=== PATIENT | female | born 2000 | race Caucasian/White ===

== ENCOUNTER 2018-03-13 00:54 | Emergency (ER) | payer OTHER ==
[2018-03-13 01:14] VITALS: TEMP 97.1
[2018-03-13] MEDS ORDERED: SODIUM CHLORIDE 0.9% 2,000 ML IV ONE (01:32)
--- NOTE | 2018-03-13 01:38 | ED ---
General Adult HPI - General Chief complaint: Altered Mental Status Stated complaint: ETOH Time Seen by Provider: 03/13/18 01:16 Source: EMS Mode of arrival: EMS Limitations: altered mental status - History of Present Illness Initial comments: Merced is a 17-year-old female who presents the ED today via EMS for evaluation of altered mental status and tachycardia. Per the patient she was drinking alcohol, she states she was drinking vodka and Sprite, the people drinking with her were concerned that she became too intoxicated so they called an ambulance. Patient reports that she's been told multiple times that she has a fast heart rate. She reports that she has seen a primary care doctor at her home in [place] however is never seen a credit control administrator. She reports that her resting heart rate is usually around 120. In route to the hospital day her heart rate was noted to be 150-160. Patient reports this is very fast for her. Patient reports that she's had alcohol and caffeine free Sprite today. She denies any other drug use and denies smoking, denies any marijuana or synthetic marijuana, denies any stimulants. Patient denies any recent fevers, chills, nausea or vomiting. She denies any chest pain, shortness of breath or lightheadedness. Patient is accompanied to the ER by a friend. The friend states that he works with the patient's boyfriend. He reports that they were drinking at the bar. He noticed the patient get up to use the restroom that she was very unsteady on her feet. He got up to assist her to the restroom and this most of upset her boyfriend who subsequently walked out of the bar. At that time the friend became concerned because he did so he called EMS for transfer to Hospital. He states that he has been with her this evening he has not witnessed her smoking or using any drugs. He does state that he witnessed her drinking multiple shots of vodka. - Related Data Allergies Allergy/AdvReac Type Severity Reaction Status Date / Time No Known Allergies Allergy Verified 03/13/18 01:04 Review of Systems ROS Statement: Those systems with pertinent positive or pertinent negative responses have been documented in the HPI. ROS Other: All systems not noted in ROS Statement are negative. Past Medical History Past Medical History: No Reported History History of Any Multi-Drug Resistant Organisms: None Reported Past Surgical History: No Surgical Hx Reported Past Psychological History: No Psychological Hx Reported Smoking Status: Never smoker Past Alcohol Use History: None Reported Past Drug Use History: None Reported General Exam Limitations: altered mental status Course Vital Signs 03/13/18 03/13/18 03/13/18 01:00 01:10 02:11 Temperature 97.1 F L Pulse Rate 165 H 168 H 141 H Respiratory 18 18 16 Rate Blood Pressure 150/83 O2 Sat by Pulse 98 96 Oximetry 03/13/18 03/13/18 03/13/18 02:27 02:52 04:14 Temperature Pulse Rate 112 H 101 H 97 Respiratory 16 16 Rate Blood Pressure 97/55 O2 Sat by Pulse 100 Oximetry 03/13/18 04:39 Temperature Pulse Rate 100 Respiratory 16 Rate Blood Pressure 100/72 O2 Sat by Pulse 99 Oximetry EKG Findings - EKG Comments: EKG Findings:: EKG obtained at 1 AM, rate is 152, rhythm is sinus tachycardia, misses a narrow complex regular tachycardia. There is a P-wave before each QRS. Normal axis, normal intervals, WA 124, QRS is 82, QTc 410. No evidence of acute ischemia or infarction Medical Decision Making - Medical Decision Making Patient was seen and evaluated, history was obtained from the patient NO Previous medical records available as the [place] A broad workup including labs, toxicology labs and react labs were ordered IV fluids infusing After patient calmed down her heart rate improved to 115 Labs and imaging were unremarkable Heart rate continued to improve, was noted to be in the 80s to 90s comfortably Labs unremarkable, d-dimer negative, TSH within normal limits Patient has a friend at bedside who states he is comfortable taking the patient home. He is aware that the patient is currently intoxicated. Patient states she feels comfortable being discharged home. Patient will be referred to cardiology for outpatient evaluation of her persistent tachycardia - Lab Data Result diagrams: 03/13/18 01:51 Lab Results 03/13/18 03/13/18 03/13/18 Range/Units 01:51 01:51 01:51 WBC 7.1 (4.0-11.0) k/uL RBC 4.52 (3.80-5.40) m/uL Hgb 14.6 (11.4-16.0) gm/dL Hct 42.1 (34.0-46.0) % MCV 93.2 (80.0-100.0) fL MCH 32.2 (25.0-35.0) pg MCHC 34.6 (31.0-37.0) g/dL RDW 13.1 (11.5-15.5) % Plt Count 311 (150-450) k/uL Neutrophils % 56 % Lymphocytes % 31 % Monocytes % 7 % Eosinophils % 2 % Basophils % 1 % Neutrophils # 4.0 (1.3-7.7) k/uL Lymphocytes # 2.2 (1.0-4.8) k/uL Monocytes # 0.5 (0-1.0) k/uL Eosinophils # 0.2 (0-0.7) k/uL Basophils # 0.1 (0-0.2) k/uL PT (9.0-12.0) sec INR (<1.2) APTT (22.0-30.0) sec D-Dimer (<0.60) mg/L FEU Magnesium 1.9 (1.6-2.3) mg/dL Total Creatine Kinase 61 (30-135) U/L CK-MB (CK-2) 0.4 (0.0-2.4) ng/mL CK-MB (CK-2) Rel Index 0.7 Troponin I <0.012 (0.000-0.034) ng/mL TSH 0.488 (0.465-4.680) mIU/L Urine Color Urine Appearance (Clear) Urine pH (5.0-8.0) Ur Specific J[place] (1.001-1.035) Urine Protein (Negative) Urine Glucose (UA) (Negative) Urine Ketones (Negative) Urine Blood (Negative) Urine Nitrite (Negative) Urine Bilirubin (Negative) Urine Urobilinogen (<2.0) mg/dL Ur Leukocyte Esterase (Negative) Urine HCG, Qual (Not Detectd) Salicylates <1.0 mg/dL Urine Opiates Screen (NotDetected) Ur Oxycodone Screen (NotDetected) Urine Methadone Screen (NotDetected) Ur Propoxyphene Screen (NotDetected) Acetaminophen <10.0 ug/mL Ur Barbiturates Screen (NotDetected) U Tricyclic Antidepress (NotDetected) Ur Phencyclidine Scrn (NotDetected) Ur Amphetamines Screen (NotDetected) U Methamphetamines Scrn (NotDetected) U Benzodiazepines Scrn (NotDetected) Urine Cocaine Screen (NotDetected) U Marijuana (THC) Screen (NotDetected) Serum Alcohol 287 H* mg/dL 03/13/18 03/13/18 03/13/18 Range/Units 02:00 02:08 02:08 WBC (4.0-11.0) k/uL RBC (3.80-5.40) m/uL Hgb (11.4-16.0) gm/dL Hct (34.0-46.0) % MCV (80.0-100.0) fL MCH (25.0-35.0) pg MCHC (31.0-37.0) g/dL RDW (11.5-15.5) % Plt Count (150-450) k/uL Neutrophils % % Lymphocytes % % Monocytes % % Eosinophils % % Basophils % % Neutrophils # (1.3-7.7) k/uL Lymphocytes # (1.0-4.8) k/uL Monocytes # (0-1.0) k/uL Eosinophils # (0-0.7) k/uL Basophils # (0-0.2) k/uL PT 10.3 (9.0-12.0) sec INR 1.1 (<1.2) APTT 24.3 (22.0-30.0) sec D-Dimer 0.36 (<0.60) mg/L FEU Magnesium (1.6-2.3) mg/dL Total Creatine Kinase (30-135) U/L CK-MB (CK-2) (0.0-2.4) ng/mL CK-MB (CK-2) Rel Index Troponin I (0.000-0.034) ng/mL TSH (0.465-4.680) mIU/L Urine Color Colorless Urine Appearance Clear (Clear) Urine pH 6.0 (5.0-8.0) Ur Specific J[place] 1.002 (1.001-1.035) Urine Protein Negative (Negative) Urine Glucose (UA) Negative (Negative) Urine Ketones Negative (Negative) Urine Blood Negative (Negative) Urine Nitrite Negative (Negative) Urine Bilirubin Negative (Negative) Urine Urobilinogen <2.0 (<2.0) mg/dL Ur Leukocyte Esterase Negative (Negative) Urine HCG, Qual (Not Detectd) Salicylates mg/dL Urine Opiates Screen Not Detected (NotDetected) Ur Oxycodone Screen Not Detected (NotDetected) Urine Methadone Screen Not Detected (NotDetected) Ur Propoxyphene Screen Not Detected (NotDetected) Acetaminophen ug/mL Ur Barbiturates Screen Not Detected (NotDetected) U Tricyclic Antidepress Not Detected (NotDetected) Ur Phencyclidine Scrn Not Detected (NotDetected) Ur Amphetamines Screen Not Detected (NotDetected) U Methamphetamines Scrn Not Detected (NotDetected) U Benzodiazepines Scrn Not Detected (NotDetected) Urine Cocaine Screen Not Detected (NotDetected) U Marijuana (THC) Screen Not Detected (NotDetected) Serum Alcohol mg/dL 03/13/18 Range/Units 02:08 WBC (4.0-11.0) k/uL RBC (3.80-5.40) m/uL Hgb (11.4-16.0) gm/dL Hct (34.0-46.0) % MCV (80.0-100.0) fL MCH (25.0-35.0) pg MCHC (31.0-37.0) g/dL RDW (11.5-15.5) % Plt Count (150-450) k/uL Neutrophils % % Lymphocytes % % Monocytes % % Eosinophils % % Basophils % % Neutrophils # (1.3-7.7) k/uL Lymphocytes # (1.0-4.8) k/uL Monocytes # (0-1.0) k/uL Eosinophils # (0-0.7) k/uL Basophils # (0-0.2) k/uL PT (9.0-12.0) sec INR (<1.2) APTT (22.0-30.0) sec D-Dimer (<0.60) mg/L FEU Magnesium (1.6-2.3) mg/dL Total Creatine Kinase (30-135) U/L CK-MB (CK-2) (0.0-2.4) ng/mL CK-MB (CK-2) Rel Index Troponin I (0.000-0.034) ng/mL TSH (0.465-4.680) mIU/L Urine Color Urine Appearance (Clear) Urine pH (5.0-8.0) Ur Specific [place] (1.001-1.035) Urine Protein (Negative) Urine Glucose (UA) (Negative) Urine Ketones (Negative) Urine Blood (Negative) Urine Nitrite (Negative) Urine Bilirubin (Negative) Urine Urobilinogen (<2.0) mg/dL Ur Leukocyte Esterase (Negative) Urine HCG, Qual Not Detected (Not Detectd) Salicylates mg/dL Urine Opiates Screen (NotDetected) Ur Oxycodone Screen (NotDetected) Urine Methadone Screen (NotDetected) Ur Propoxyphene Screen (NotDetected) Acetaminophen ug/mL Ur Barbiturates Screen (NotDetected) U Tricyclic Antidepress (NotDetected) Ur Phencyclidine Scrn (NotDetected) Ur Amphetamines Screen (NotDetected) U Methamphetamines Scrn (NotDetected) U Benzodiazepines Scrn (NotDetected) Urine Cocaine Screen (NotDetected) U Marijuana (THC) Screen (NotDetected) Serum Alcohol mg/dL Disposition Clinical Impression: Alcoholic intoxication, Tachycardia Disposition: HOME SELF-CARE Condition: Stable Instructions: Tachycardia (ED) Is patient prescribed a controlled substance at d/c from ED?: No Referrals: None,Stated [Primary Care Provider] - 1-2 days [facility] [Provider Group] - 1-2 days Time of Disposition: 04:22
[2018-03-13 02:02] LABS: Basophils # (A) 0.1 k/uL (0-0.2); Basophils % (A) 1 %; Eosinophils # (A) 0.2 k/uL (0-0.7); Eosinophils % (A) 2 %; HCT 42.1 % (34.0-46.0); HGB 14.6 gm/dL (11.4-16.0); Lymphocytes # (A) 2.2 k/uL (1.0-4.8); Lymphocytes % (A) 31 %; MCH 32.2 pg (25.0-35.0); MCHC 34.6 g/dL (31.0-37.0); MCV 93.2 fL (80.0-100.0); Mean Platelet Volume 7.5; Monocytes # (A) 0.5 k/uL (0-1.0); Monocytes % (A) 7 %; Neutrophils % (A) 56 %; Platelet Count 311 k/uL (150-450); RBC 4.52 m/uL (3.80-5.40); RDW 13.1 % (11.5-15.5); WBC 7.1 k/uL (4.0-11.0)
[2018-03-13 02:11] LABS: Acetaminophen <10.0 ug/mL; Magnesium 1.9 mg/dL (1.6-2.3); Salicylate <1.0 mg/dL
[2018-03-13 02:12] VITALS: RESP 16
[2018-03-13 02:16] LABS: Appearance,Urine Clear (Clear); Bilirubin,Urine Negative (Negative); Blood,Urine Negative (Negative); Color,Urine Colorless; Glucose,Urine (UA) Negative (Negative); Ketones,Urine Negative (Negative); Leukocyte Esterase,Urine Negative (Negative); Nitrite,Urine Negative (Negative); Protein,Urine Negative (Negative); Specific Gravity,Urine 1.002 (1.001-1.035); Urobilinogen,Urine <2.0 mg/dL (<2.0)
[2018-03-13 02:24] LABS: D-Dimer 0.36 mg/L FEU (<0.60); INR 1.1 (<1.2); Partial Thromboplastin Time 24.3 sec (22.0-30.0); Prothrombin Time 10.3 sec (9.0-12.0)
--- NOTE | 2018-03-13 02:25 | XR ---
EXAMINATION TYPE: XR chest 2V DATE OF EXAM: 03/13/2018 COMPARISON: NONE HISTORY: Chest pain TECHNIQUE: Frontal and lateral views of the chest are obtained. FINDINGS: Heart and mediastinum are normal. Lungs are clear. Diaphragm is normal. There are chest le ads. There is 5% wedging of L1 vertebra. IMPRESSION: No cardiopulmonary disease.
[2018-03-13 02:26] LABS: Amphetamine Screen,Urine Not Detected (NotDetected); Barbiturate Screen,Urine Not Detected (NotDetected); Benzodiazepines Screen,Urine Not Detected (NotDetected); Cocaine Screen,Urine Not Detected (NotDetected); Methadone Screen, Urine Not Detected (NotDetected); Opiate Screen,Urine Not Detected (NotDetected); Oxycodone Screen, Urine Not Detected (NotDetected); Phencyclidine Screen,Urine Not Detected (NotDetected); Tricyclic Antidepressant,Urine Not Detected (NotDetected); Urn Cannabinoid Scrn Not Detected (NotDetected)
[2018-03-13 02:28] LABS: Creatine Kinase 61 U/L (30-135)
[2018-03-13 02:34] LABS: Alcohol 287 mg/dL
[2018-03-13 02:41] LABS: Creatine Kinase MB 0.4 ng/mL (0.0-2.4); Troponin I <0.012 ng/mL (0.000-0.034)
[2018-03-13 04:40] VITALS: BP 100/72; PULSE 100
== END 2018-03-13 04:42 | disposition home or self-care (01) ==
LOC: EC 00:54
DX: F10.129 Alcohol abuse with intoxication, unspecified (principal); R00.0 Tachycardia, unspecified; R41.82 Altered mental status, unspecified
CPT/HCPCS: 36415; 71046; 80306; 80320; 81003; 81025; 82075; 82550; 82553; 83520; 83735; 84443; 84484; 85025; 85379; 85610; 85730; 93005; 96360; 96361; 99285